=== PATIENT | female | born 1950 | race Caucasian/White ===

== ENCOUNTER 2020-08-18 05:33 | Day surgery (SDC) | payer MEDICARE, BC ==
[2020-08-06 15:14] LABS: BASOPHILS # (AUTO) 0.1 X10'3 (0-0.2); BASOPHILS % (AUTO) 0.9 % (0-1); EOSINOPHILS # (AUTO) 0.2 X10'3 (0-0.9); EOSINOPHILS % (AUTO) 2.7 % (0-6); LYMPHOCYTES # (AUTO) 2.8 X10'3 (1.1-4.8); LYMPHOCYTES % (AUTO) 30.3 % (21-51); MEAN CORPUSCULAR HEMOGLOBIN 32.2 PG (27.0-31.0); MEAN CORPUSCULAR HGB CONC 34.1 g/dL (33.0-36.5); MEAN CORPUSCULAR VOLUME 94.4 FL (78-98); MEAN PLATELET VOLUME 9.7 FL (7.4-10.4); MONOCYTES % (AUTO) 11.2 % (2-12); NEUTROPHILS # (AUTO) 5.1 X10'3 (1.8-7.7); NEUTROPHILS % (AUTO) 54.9 % (42-75); PRE OP HEMATOCRIT 39.8 % (35.0-45.0); PRE OP HEMOGLOBIN 13.6 g/dL (12.0-16.0); PRE OP PLATELET COUNT 283 X10'3 (140-440); RED BLOOD COUNT 4.21 X10'6 (4.20-5.60); RED CELL DISTRIBUTION WIDTH 12.7 % (11.5-14.5)
[2020-08-06 15:26] LABS: ALBUMIN 3.7 G/DL (3.4-5.0); ALBUMIN/GLOBULIN RATIO 1.1 (1.1-1.5); ALKALINE PHOSPHATASE 77 IU/L (46-116); BLOOD UREA NITROGEN 13 MG/DL (7-18); BUN/CREATININE RATIO 15.3 (6.6-38.0); CALCIUM 8.9 MG/DL (8.5-10.1); CHLORIDE 107 MMOL/L (99-107); CREATININE 0.85 MG/DL (0.40-0.90); PRE OP ALT 26 U/L (30-65); PRE OP ANION GAP 4 (8-16); PRE OP AST 15 U/L (10-37); PRE OP BILIRUB, TOTAL 0.3 MG/DL (0.0-1.0); PRE OP GLUCOSE 92 MG/DL (70-104); PRE OP POTASSIUM 3.8 MMOL/L (3.4-5.1); PRE OP SODIUM 142 MMOL/L (135-145); TOTAL CARBON DIOXIDE 30.9 MMOL/L (24-32); TOTAL PROTEIN 7.2 G/DL (6.4-8.2); eGFR 67 ML/MIN
[~2020-08-18] VITALS: Ht 167.6 cm; Wt 91.0 kg
[2020-08-18] VITALS (10 sets, daily range): BP systolic 130–154; BP diastolic 60–79
[~2020-08-18 05:33] MED LIST: ASCO-139 PO; ATEN25TA PO; CALCIUM PO; CHOL20004 PO; DOCUMENT DATE & TIME OF BETA-BLOCKER PO ONE; ECHI400C17 PO; FLEC50TA28 PO; LISI-604 PO; LOVA40TA2 PO; PANT40TA54 PO; ceFAZolin 2gm in dextrose, iso 50 ML IV ONE; famotidine 20mg tablet PO ONE; ringers solution, lacted 1,000 ML IV SCH
[2020-08-18] MEDS ORDERED: LIDOcaine 1% (10mg/ml) 2ml vial ONE (06:04)
[2020-08-18] MEDS ORDERED: BUPIVAcaine/PF 2.5 mg/ml (0.25%) 30ml vial ONE (06:49)
[2020-08-18] MEDS ORDERED: fentaNYL/PF 50MCG/1 ML 2ML syringe ONE (07:04)
[2020-08-18] MEDS ORDERED: LIDOcaine 2% (20mg/ml) 5ml vial ONE (07:05)
[2020-08-18] MEDS ORDERED: ROPIVAcaine 0.5% (5mg/ml) 30ml vial ONE (07:05)
[2020-08-18] MEDS ORDERED: propofol inj 20 ML IV ONE (07:05)
[2020-08-18] MEDS ORDERED: MIDAZolam 5mg/5ml vial ONE (07:05)
[2020-08-18] MEDS ORDERED: sevoflurane 250ml liquid IH ONE (07:10)
[2020-08-18] MEDS ORDERED: dexamethasone sod phosphate 4mg/ml inj. ONE (08:33)
[2020-08-18] MEDS ORDERED: ondansetron/PF 4mg/2ml inj ONE (08:33)
[2020-08-18] MEDS ORDERED: morphine 4 MG/ML inj SYRINge IV PRN (08:35)
[2020-08-18] MEDS ORDERED: ondansetron/PF 4mg/2ml inj IV PRN (08:35)
[2020-08-18] MEDS ORDERED: proCHLORperazine 10 MG/2 ml inj IV PRN (08:35)
[2020-08-18] MEDS ORDERED: ringers solution, lacted 1,000 ML IV SCH (08:35)
[2020-08-18] MEDS ORDERED: meperidine/PF 25mg/ml syringe IV PRN ×3 (08:35)
[2020-08-18] MEDS ORDERED: ROPIVAcaine 0.2% (10 MG/5 ML) BOLUS INJECTION INTERSCALE PRN (08:35)
[2020-08-18] MEDS ORDERED: morphine 2 MG/ML inj. syringe IV PRN (08:35)
--- NOTE | 2020-08-18 09:14 | NUR ---
Received from OR via [facility], accompanied by Anesthesiologist DR OSMAN and report given by Anesthesiologist. PT DROWSY, DENIES PAIN, LEFT ARM IN IMMOBILIZER, SHOULER WRAP, ICE PACK, GAUZE JAYNE HACKETT. Addendum: 08/18/20 at 0938 by Hanh Choudhary RN Amended: Links added.
[2020-08-18] MEDS ORDERED: HYDROcodone/acetaminophen 10/325mg tab PO PRN (09:25)
[2020-08-18] MEDS ORDERED: ROPIVAcaine 0.2%/PF PUMP/bolus 550 ML INTERSCALE SCH (09:30)
--- NOTE | 2020-08-18 10:54 | NUR ---
PT UP AND ABLE TO AMBULATE SAFELY TO BATHROOM FOR VOID, D/C INSTRUCTIONS GIVEN TO AND GONE OVER W/PT AND PTS WHOM BOTH VERBALIZE UNDERSTANDING. PT D/CD TO HOME VIA W/C TO PRIVATE VEHICLE WITHOUT INCIDENT. Addendum: 08/18/20 at 1125 by Hanh Choudhary RN Amended: Links added.
[2020-08-18] MEDS ORDERED: acetaminophen 1,000mg/100ml IV 100 ML IV SCH (14:00)
== END 2020-08-18 10:54 | disposition home or self-care (01) ==
LOC: PAS 05:33
PROVIDERS: ATTEND Orthopaedic Surgery
DX: M75.122 Complete rotator cuff tear or rupture of left shoulder, not specified as traumatic (principal); M75.22 Bicipital tendinitis, left shoulder; M19.012 Primary osteoarthritis, left shoulder; M75.52 Bursitis of left shoulder; M65.812 Other synovitis and tenosynovitis, left shoulder; F41.9 Anxiety disorder, unspecified; I48.91 Unspecified atrial fibrillation; I10 Essential (primary) hypertension; K21.9 Gastro-esophageal reflux disease without esophagitis; M18.11 Unilateral primary osteoarthritis of first carpometacarpal joint, right hand; M19.011 Primary osteoarthritis, right shoulder; E66.9 Obesity, unspecified; Z68.32 Body mass index [BMI] 32.0-32.9, adult; Z88.8 Allergy status to other drugs, medicaments and biological substances; Z20.828 Contact with and (suspected) exposure to other viral communicable diseases; Z79.899 Other long term (current) drug therapy; Z90.710 Acquired absence of both cervix and uterus; Z98.890 Other specified postprocedural states; Z87.891 Personal history of nicotine dependence; Z72.89 Other problems related to lifestyle
CPT/HCPCS: 29824; 29826; 29827; 36415; 64416; 76937; 80053; 82948; 85025; 87635; 93005; C1713; J1100; J2001; J2250; J2405; J2704; J2795; J3010; J3490; J7120; A4618; A6449; A7000

== ENCOUNTER 2025-05-15 11:58 | Emergency (ER) | payer MEDICARE, BC ==
[~2025-05-15] VITALS: Ht 167.6 cm; Wt 85.2 kg
[~2025-05-15 11:58] MED LIST changes: -DOCUMENT DATE & TIME OF BETA-BLOCKER PO ONE; -ECHI400C17 PO; +ECHI400C18 PO; -LISI-604 PO; +LISI5TAB22 PO; -ceFAZolin 2gm in dextrose, iso 50 ML IV ONE; -famotidine 20mg tablet PO ONE; -ringers solution, lacted 1,000 ML IV SCH
[2025-05-15 12:07] VITALS: TEMP 97.1
[2025-05-15 12:27] LABS: MEAN PLATELET VOLUME 10.0 FL (7.4-10.4); RED CELL DISTRIBUTION WIDTH 13.4 % (11.5-14.5)
[2025-05-15 12:32] LABS: APTT 26 SECONDS (22-32); INR 1.0 INR
--- NOTE | 2025-05-15 12:33 | Physician Documentation ---
History of Present Illness ~ Chief Complaint: Rapid Heartbeat Stated Complaint: IRREGULAR HR Time Seen by MD: 12:16 OK to notify your PCP?: Yes Source: patient Mode of Arrival: POV HPI 75-year-old female patient with a history of atrial fibrillation on flecainide and hypertension and dyslipidemia came to the emergency room ambulatory because of palpitation and rapid heartbeat since yesterday. Is started out yesterday evening while watching elevation. Her heart rate accelerated and she felt lightheaded. She took Xanax and see whether it helped or not. Initially it calmed down but then it became erratic throughout the night. Denies chest pain but she is very uncomfortable because of the chest palpitation. Patient is not taking any anticoagulation as well as any antiplatelets. No syncope. No other complaints. Medication Reconciliation Allergies: Uncoded Allergies: SENSITIVE TO ALL PAIN MEDS (Adverse Reaction, Unknown, 08/06/20) Scheduled Ascorbic Acid (Vitamin C), 1 TAB PO DAILY, (Reported) Atenolol (Atenolol), 1 TAB PO DAILY, (Reported) Cholecalciferol (Vitamin D), 1 TAB PO DAILY, (Reported) Echinacea (Echinacea), 1 CAP PO DAILY, (Reported) Flecainide Acetate (Flecainide Acetate), 1 TAB PO HS, (Reported) Lisinopril (Lisinopril), 1 TAB PO HS, (Reported) Lovastatin (Lovastatin), 1 TAB PO HS, (Reported) Pantoprazole Sodium (Pantoprazole Sodium), 1 TAB PO DAILY, (Reported) [Calcium], Unknown Dose PO DAILY, (Reported) Review of Systems ROS As stated above in the HPI, otherwise all systems are reviewed and negative. Physical Exam Vital Signs: Temperature: 97.1, Source: Temporal, Heart Rate: 93, Respiratory Rate: 18, BP: 156/78, Pulse Oximetry: 98, Weight: 85.150 Oxygen Flow Rate: 0 Physical Exam Reviewed vital signs and heart rate is irregularly irregular but cardiac output is still good with blood pressure 156/78. Const: Uncomfortable Head: Atraumatic Eyes: Normal Conjunctiva ENT: Normal External Ears, Nose and Mouth. Moist mucous membranes Neck: Full range of motion. No meningismus Resp: Clear to auscultation bilaterally. Normal work of breathing Cardio: Irregularly irregular rate and rhythm, no murmurs. Skin well perfused Abd: Soft, non-tender, non-distended. Normal bowel sounds. No rebound or guarding Skin: No petechiae or rashes. Warm and dry Back: No midline or flank tenderness Ext: No cyanosis, or edema Neuro: Awake and alert Psych: Normal Mood and Affect Progress Results/Orders Results/Orders Orders - IFRAH FALLON MD Monitor (05/15/25 12:16) Saline Lock (05/15/25 12:16) Completed Orders - IFRAH FALLON MD Cbc/Diff (05/15/25 12:16) MG (05/15/25 12:16) Pt Inr (05/15/25 12:16) PTT (05/15/25 12:16) PBNP (05/15/25 12:16) Electrocardiogram (05/15/25 12:16) Hs Troponin I W Calculations (05/15/25 12:16) CMP (05/15/25 12:17) Normal Saline 1000ml (0.9% Sodium Chlori (05/15/25 12:30) Lorazepam Inj (Ativan Inj) (05/15/25 12:30) Diltiazem Iv (Cardizem Iv 5mg/Ml Inj.) (05/15/25 12:30) Magnesium Sulf-Water 2g/50ml (Magnesium (05/15/25 12:55) Hs Troponin I W Calculations (05/15/25 14:20) Vital Signs 05/15/25 05/15/25 05/15/25 05/15/25 12:07 12:45 12:45 13:11 Temp 97.1 Pulse 93 85 67 Resp 18 14 18 B/P (MAP) 156/78 148/69 104/59 (74) Pulse Ox 98 93 O2 Flow Rate 0 0 05/15/25 05/15/25 15:00 16:04 Pulse 78 71 Resp 18 20 B/P (MAP) 106/60 (75) 103/63 (76) Pulse Ox 96 93 O2 Flow Rate 0 Laboratory Tests Test 05/15/25 12:20 05/15/25 14:26 White Blood Count 11.9 H Red Blood Count 4.62 Hemoglobin 14.5 Hematocrit 43.2 Mean Corpuscular Volume 93.5 Mean Corpuscular Hemoglobin 31.3 H Mean Corpuscular Hemoglobin Concent 33.5 Red Cell Distribution Width 13.4 Platelet Count 361 Mean Platelet Volume 10.0 Neutrophils (%) (Auto) 54.9 Lymphocytes (%) (Auto) 32.2 Monocytes (%) (Auto) 10.9 Eosinophils (%) (Auto) 1.2 Basophils (%) (Auto) 0.8 Neutrophils # (Auto) 6.5 Lymphocytes # (Auto) 3.8 Monocytes # (Auto) 1.3 H Eosinophils # (Auto) 0.1 Basophils # (Auto) 0.1 CBC Comment Prothrombin Time 10.4 INR International Normalized Ratio 1.0 Activated Partial Thromboplast Time 26 Coagulation Comments Sodium Level 139 Potassium Level 4.6 Chloride Level 103 Carbon Dioxide Level 27.5 Anion Gap 9 Blood Urea Nitrogen 22 H Creatinine 0.90 Estimated GFR/1.73 m2 61 BUN/Creatinine Ratio 24.4 H Glucose Level 96 Calcium Level 9.3 Magnesium Level 2.1 Total Bilirubin 0.4 Aspartate Amino Transf (AST/SGOT) 20 Alanine Aminotransferase (ALT/SGPT) 24 Alkaline Phosphatase 92 Troponin I High Sensitivity 71 *H 69 *H Pro-B-Type Natriuretic Peptide 2528 H Total Protein 8.1 Albumin 3.9 Globulin 4.2 Albumin/Globulin Ratio 0.9 L Chemistry Comments Troponin I High Sens Percent Delta 2 Troponin I Hi Sens Absolute Change -2 Medical Decision Making Findings ED MD interpretation of EKG done at 12:02 hours shows atrial fibrillation at a r ate of 137. Normal axis. QRS complex is normal. No ischemic changes. ER Course/Med. Decision Making REVIEW of RECORD(S): Previous medical records here and/or external medical records, such as that provided directly by the patient, by EMS and/or outside medical facilities, if available, were reviewed. COMORBIDITIES atrial fibrillation, hypertension, dyslipidemia MDM During the physical examination, the findings suggestive of acute life- threatening condition such as JVD, tracheal deviation, acidotic breathing, noisy stridorous breath sounds, pulses paradoxus, muffled heart sounds, unequal breath sounds, abdominal rigidity and rebound tenderness, focal neurological deficits, cool clammy skin, severe hypotension, severe tachycardia or bradycardia are absent. Patient presenting for palpitation with rapid heart rate. Vital signs reviewed. Patient is hemodynamically stable and does not meet SIRS criteria. Patient appears nontoxic on exam. Patient's blood pressure has been maintaining normal. After the patient was put on monitor and IV establish we have given her diltiazem 0.25 milligram/kg 0 together with Ativan 1 mg IV push and it is converted to sinus rhythm. We will keep her for a few hours to see whether it is sustained in sinus rhythm. In the meantime troponin was 71 and I think is type 2 ischemia and we will do serial troponin to make sure that it is not climbing up.Second trop is 69. Patient was kept in the hospital monitor throughout since she converted to sinus rhythm and she is in sinus rhythm consistently. She has no chest pain whatsoever and this slight elevation of troponin is type 2 ischemia. Patient will be discharged from the emergency room and she will see Dr. Chun tomorrow. Patient does not have identifiable emergent medical condition that warrants inpatient medical care at this time. The patient is deemed safe for discharge with outpatient follow up. TREATMENT/DISPOSITION: The patient's presentation is most consistent with atrial fibrillation with rapid ventricular response. Prior to discharge I independently reviewed the patients past medical history, clinical risk factors, comorbidities, and social determinants of health and diagnostic studies. The patient appears to be a safe discharge home with close outpatient PCP follow-up I had extensive discussion with patient regarding management, disposition and follow up. Potential symptom etiology was discussed, and shared decision making occurred. They will return immediately if symptoms worsen, do not improve, or they have any further concerns. Prior to discharge all questions were addressed. The patient is aware that the purpose of this visit was to screen for an acute medical emergency requiring emergent stabilization. Chronic and occult conditions, including malignancies, have not been ruled out. If patient is unable to arrange follow-up as stated in the discharge instructions and further discussed with the patient directly, or their symptoms worsen/become more concerning, they are to return to the ER for reassessment immediately. Prior to leaving the department, the patient has a plan for discharge, has decision making capacity, and acknowledges an understanding of the verbal and written discharge instructions. SOCIAL DETERMINANTS: Patient demonstrates no obvious challenges to following up as an outpatient although did consider whether patient had any barriers to access care including homelessness, Food insecurity, Mental health, Substance abuse, Disabilities, Limited access to medical care, Difficulty finding transport, Insurance issues, Refusal of care or testing due to cost concerns. MEDICAL SCREENING: I have discussed with the patient the non-definitive nature of the emergency screening exam, diagnosis and the possibility of a variety of conditions which may present in atypically benign fashion and stressed the importance of close follow-up for definitive diagnosis and treatment. We discussed signs and symptoms that should be watched for which might indicate a more serious or new condition that would benefit from emergency reevaluation and the patient has verbalized understanding to this and my other detailed discharge instructions and promises compliance. I have referred him back to his primary physician of course for a more detailed evaluation and more definitive diagnoses. DISCLAIMER: Inadvertent spelling and grammatical errors are likely due to EMR/dictation software use and do not reflect on the overall quality of patient care. Note that the electronic time recorded on this note does not necessarily reflect the actual time of the patient encounter. Differential Dx:Considerations: Include: angina / MO, atrial dysrhythmia, atrial fibrillation, atrial flutter, MAT, PSVT, sinus tachycardia, WPW, 3rd degree AV block, PVCs, torsades de pointes, ventricular fibrillation, ventricular tachycardia Departure Disposition: HOME / SELF CARE / HOMELESS Impression: Primary Impression: Atrial fibrillation with RVR Condition: Stable Additional Instructions: Thank you for coming to our Emergency Department today. Please take one extra flecainide tablets today. Continue the rest of the medicine the same. Please ask your nurse or provider if you have questions about your care today and do not leave until all your questions have been answered. Please use any m edications given as directed and follow-up with your doctor (or the doctor you were referred to) in the next 1-3 days. Your primary care doctor can help to coordinate outpatient specialty care and provide authorization for specialty referral as needed. If you do not have a primary care doctor you may follow up at a [facility]. You may also use motrin and tylenol as needed for fever and/or pain unless instructed otherwise by your provider or nurse. Indications for more urgent follow-up have been discussed, but you may return to the Emergency Department at ANY time for any worrisome or worsening symptoms. County Facilities: [facility] Facilities: [facility]: [facility] [place] Address:[address] [place] [address] [facility]: [place] Address:[address] [place] [id number] [facility]: [facility] Address:[address] [place] [address] [facility] Address:[address] [phone] Registration Billing Pharmacy Referrals [facility] Address:[address] [place] [address] Referrals: NO PRIMARY CARE PROVIDER (PCP) Education Educated: Patient Educated regarding: diagnosis, treatment, need for follow up Signature Scribe Signature: None Attestation: My dictation IFRAH FALLON MD May 15, 2025 12:33
[2025-05-15 12:34] LABS: CREATININE 0.90 MG/DL (0.40-0.90); TOTAL CARBON DIOXIDE 27.5 MMOL/L (24-32); eCRCL 52 ML/MIN; eGFR 61 ML/MIN
[2025-05-15 12:41] LABS: PRO BRAIN NATRIURETIC PEPTIDE 2528 PG/ML (0-125)
[2025-05-15] MEDS: normal saline 1000ml 1,000 ML IV ONE (12:41)
[2025-05-15] MEDS: diltiazem 5mg/ml 5ml inj. IV ONE (12:45)
--- NOTE | 2025-05-15 12:48 | ELECTROCARDIOGRAPH REPORT ---
[facility] Test Date: 2025-05-15 Test Time: 12:02:16 Pat Name: DANIA MA Department: EMERGENCY ROOM Room: Gender: F Edging Machine Catcher: : [id number] Requested By: IFRAH FALLON Order Number: [id number] Reading MD: Dr. Jorge Lopez Measurements Intervals [place] Rate: 137 P: 0 VT: 0 QRS: 27 QRSD: 95 T: 210 QT: 266 QTc: 402 Interpretive Statements Atrial fibrillation Low voltage, precordial leads Repolarization abnormality, prob rate related Baseline wander in lead(s) V3,V6 Electronically Signed On 05-16-2025 21:40:[address] Jorge Lopez Please click the below link to view image of tracing.
[2025-05-15] MEDS: magnesium sulf-water 2g/50mL 50 ML IV ONE (13:09)
[2025-05-15 16:04] VITALS: BP 103/63; PULSE 71; RESP 20; O2SAT 93
== END 2025-05-15 17:08 | disposition home or self-care (01) ==
LOC: ER 11:58
DX: I48.20 Chronic atrial fibrillation, unspecified (principal); I10 Essential (primary) hypertension; E78.5 Hyperlipidemia, unspecified; Z79.899 Other long term (current) drug therapy
CPT/HCPCS: 36415; 80053; 83735; 83880; 84484; 85025; 85610; 85730; 93005; 96365; 96366; 96375; 99284; J2060; J3490; J7030; 96361